=== PATIENT | female | born 1995 | race Caucasian/White ===

== ENCOUNTER 2023-09-23 23:40 | Emergency (ER) | payer MEDICAID, OTHER ==
[~2023-09-23] VITALS: Ht 165.1 cm; Wt 122.5 kg
[2023-09-23 23:58] VITALS: BP 104/74; PULSE 123; RESP 20; TEMP 99.8; O2SAT 98
[2023-09-24] MEDS ORDERED: KETOROLAC 30 MG/ML VIAL IVP ONE (00:15)
[2023-09-24] MEDS ORDERED: NACL 0.9% 1,000 ML IV ONE (00:15)
[2023-09-24 00:46] VITALS: TEMP 98.1
[2023-09-24 00:59] LABS: FLU A ANTIGEN negative (NEGATIVE); FLU B ANTIGEN NEGATIVE (NEGATIVE)
[2023-09-24] MEDS ORDERED: ACET-8905 PO (02:02)
[2023-09-24] MEDS ORDERED: ONDA8TAB87 PO (02:02)
[2023-09-24] MEDS ORDERED: IBUP-2213 PO (02:02)
[2023-09-24 02:15] VITALS: BP 93/61; PULSE 97; RESP 16; O2SAT 98
== END 2023-09-24 02:16 | disposition home or self-care (01) ==
LOC: MED 23:40
DX: M54.50 Low back pain, unspecified (principal); R11.2 Nausea with vomiting, unspecified; R19.7 Diarrhea, unspecified; Z20.822 Contact with and (suspected) exposure to COVID-19; R42 Dizziness and giddiness
CPT/HCPCS: 81002; 81025; 87426; 87804; 96361; 96374; 99283; J1885; J7030

== ENCOUNTER 2023-11-18 08:47 | Emergency (ER) | payer OTHER ==
[~2023-11-18] VITALS: Ht 165.1 cm; Wt 122.5 kg
[~2023-11-18 08:47] MED LIST: ACET-8905 PO; IBUP-2213 PO; ONDA8TAB87 PO
[2023-11-18 08:57] VITALS: BP 124/88; PULSE 67; RESP 16; TEMP 98; O2SAT 98
[2023-11-18 09:10] VITALS: BP 118/55; PULSE 70; RESP 16; TEMP 98; O2SAT 98
== END 2023-11-18 10:35 | disposition home or self-care (01) ==
LOC: MED 08:47
DX: K12.2 Cellulitis and abscess of mouth (principal); Z98.890 Other specified postprocedural states; Z79.899 Other long term (current) drug therapy; Z79.1 Long term (current) use of non-steroidal anti-inflammatories (NSAID)
CPT/HCPCS: 99284